=== PATIENT | female | born 1970 | race Caucasian/White ===

== ENCOUNTER 2016-04-25 15:21 | Emergency (ER) | payer MEDICAID ==
[2016-04-25 16:38] LABS: APPEARANCE CLEAR (CLEAR); BILIRUBIN NEGATIVE (NEGATIVE); COLOR YELLOW (YELLOW); GLUCOSE NEGATIVE (NEGATIVE); KETONE NEGATIVE (NEGATIVE); LEUKOCYTE ESTERASE 1+ (NEGATIVE); NITRITE POSITIVE (NEGATIVE); PROTEIN TRACE mg/dL (NEGATIVE); RED CELLS - URINE 0-5 /hpf (0-5); UROBILINOGEN NORMAL (NORMAL); WHITE CELLS - URINE >50 /hpf (0-5)
[2016-04-25 16:38] LABS: ALBUMIN 3.9 g/dL (3.4-5.0); ALKALINE PHOSPHATASE 110 U/L (46-116); ALT (SGPT) 75 U/L (10-68); CALC OSMOLALITY 278 mosm/kg (275-300); CALCIUM 9.3 mg/dL (8.5-10.1); CARBON DIOXIDE 29.1 mmol/L (21.0-32.0); CHLORIDE - SERUM 103 mmol/L (98-107); CREATININE - SERUM 0.7 mg/dL (0.6-1.3); GLUCOSE 106 mg/dL (74-106); PROTEIN - SERUM 7.3 g/dL (6.4-8.2); SODIUM 140 mmol/L (136-145); UREA NITROGEN 13 mg/dL (7-18); eGFR NON AFRICAN AMERICAN > 90 mL/min (90-120)
[2016-04-25 16:39] LABS: BACTERIA MANY /hpf (NONE SEEN); MUCUS <1+ /lpf (NONE SEEN)
[2016-04-25 16:41] LABS: BASOPHILS 0.2 % (0.0-2.0); EOSINOPHILS 1.6 % (0-7); HEMOGLOBIN 13.8 g/dL (12-16); IMMATURE GRANULOCYTES 0.1 % (0-5); LYMPHOCYTES 21.8 % (15-50); MCH 29.4 pg (26.0-34.0); MCHC 32.9 g/dL (31.0-37.0); MCV 89.6 fL (80.0-100.0); MEAN PLATELET VOLUME 9.6 fL (7.4-10.4); MONOCYTES 4.3 % (2-11); PLATELET COUNT 283 10x3/uL (130-400); RBC 4.69 10x6/uL (4.00-5.40); RDW 15.6 % (11.5-14.5); WBC 10.1 10x3/uL (4.8-10.8)
== END 2016-04-25 20:13 | disposition home or self-care (01) ==
LOC: D.ER 15:21
PROVIDERS: Emergency Medicine
DX: N39.0 Urinary tract infection, site not specified (principal); N76.0 Acute vaginitis; F90.9 Attention-deficit hyperactivity disorder, unspecified type; F31.9 Bipolar disorder, unspecified; I10 Essential (primary) hypertension; F39 Unspecified mood [affective] disorder; F17.200 Nicotine dependence, unspecified, uncomplicated

== ENCOUNTER 2016-06-03 20:10 | Emergency (ER) | payer MEDICAID ==
[2016-06-03 20:46] LABS: APPEARANCE CLEAR (CLEAR); BILIRUBIN NEGATIVE (NEGATIVE); COLOR STRAW (YELLOW); GLUCOSE NEGATIVE (NEGATIVE); KETONE NEGATIVE (NEGATIVE); LEUKOCYTE ESTERASE 1+ (NEGATIVE); NITRITE NEGATIVE (NEGATIVE); PROTEIN NEGATIVE (NEGATIVE); SPECIFIC GRAVITY 1.005 (1.005-1.020); UROBILINOGEN NORMAL (NORMAL)
[2016-06-03 20:55] LABS: BACTERIA FEW /hpf (NONE SEEN); EPITHELIAL CELLS 0-5 /hpf (0-5); RED CELLS - URINE 0-5 /hpf (0-5); WHITE CELLS - URINE 0-5 /hpf (0-5)
== END 2016-06-03 21:21 | disposition home or self-care (01) ==
LOC: D.ER 20:10
PROVIDERS: Emergency Medicine
DX: A59.01 Trichomonal vulvovaginitis (principal); F90.9 Attention-deficit hyperactivity disorder, unspecified type; F31.9 Bipolar disorder, unspecified; F39 Unspecified mood [affective] disorder; F17.200 Nicotine dependence, unspecified, uncomplicated

== ENCOUNTER 2016-06-19 16:35 | Emergency (ER) | payer MEDICAID ==
[2016-06-19 18:47] LABS: BASOPHILS 0.1 % (0.0-2.0); EOSINOPHILS 3.1 % (0-7); HEMATOCRIT 38.3 % (36.0-48.0); HEMOGLOBIN 12.9 g/dL (12-16); IMMATURE GRANULOCYTES 0.3 % (0-5); LYMPHOCYTES 33.7 % (15-50); MCH 30.2 pg (26.0-34.0); MCHC 33.7 g/dL (31.0-37.0); MCV 89.7 fL (80.0-100.0); MEAN PLATELET VOLUME 9.6 fL (7.4-10.4); MONOCYTES 7.2 % (2-11); NEUTROPHILS 55.6 % (40-80); PLATELET COUNT 283 10x3/uL (130-400); RBC 4.27 10x6/uL (4.00-5.40); RDW 15.4 % (11.5-14.5); WBC 7.4 10x3/uL (4.8-10.8)
[2016-06-19 19:03] LABS: APPEARANCE HAZY (CLEAR); BILIRUBIN NEGATIVE (NEGATIVE); COLOR YELLOW (YELLOW); GLUCOSE NEGATIVE (NEGATIVE); KETONE NEGATIVE (NEGATIVE); LEUKOCYTE ESTERASE 1+ (NEGATIVE); NITRITE POSITIVE (NEGATIVE); PROTEIN 1+ mg/dL (NEGATIVE); SPECIFIC GRAVITY 1.025 (1.005-1.020); UROBILINOGEN NORMAL (NORMAL)
[2016-06-19 19:04] LABS: BACTERIA MODERATE /hpf (NONE SEEN); EPITHELIAL CELLS 0-5 /hpf (0-5); RED CELLS - URINE >50 /hpf (0-5); WHITE CELLS - URINE 25-50 /hpf (0-5)
[2016-06-19 19:07] LABS: ALBUMIN 3.8 g/dL (3.4-5.0); ALKALINE PHOSPHATASE 86 U/L (46-116); ALT (SGPT) 62 U/L (10-68); BILIRUBIN - TOTAL 0.44 mg/dL (0.2-1.3); CALC OSMOLALITY 283 mosm/kg (275-300); CALCIUM 8.8 mg/dL (8.5-10.1); CARBON DIOXIDE 25.8 mmol/L (21.0-32.0); CHLORIDE - SERUM 106 mmol/L (98-107); CREATININE - SERUM 0.7 mg/dL (0.6-1.3); GLUCOSE 90 mg/dL (74-106); POTASSIUM - SERUM 3.6 mmol/L (3.5-5.1); PROTEIN - SERUM 7.2 g/dL (6.4-8.2); SODIUM 143 mmol/L (136-145); UREA NITROGEN 11 mg/dL (7-18); eGFR NON AFRICAN AMERICAN > 90 mL/min (90-120)
== END 2016-06-19 19:40 | disposition left against medical advice (07) ==
LOC: D.ER 16:35
PROVIDERS: Emergency Medicine
DX: N20.0 Calculus of kidney (principal)

== ENCOUNTER 2018-06-24 12:27 | Emergency (ER) | payer MEDICAID ==
[~2018-06-24] VITALS: Ht 162.6 cm; Wt 104.5 kg
[2018-06-24 12:33] VITALS: BP 157/93; Ht 162.6 cm; Wt 104.5 kg
[2018-06-24] MEDS ORDERED: FLUTICASONE PRO16 GM NASAL (14:48)
[2018-06-24] MEDS ORDERED: ZYRTEC10 MG PO (14:48)
== END 2018-06-24 15:00 | disposition home or self-care (01) ==
LOC: D.ER 12:27
DX: J00 Acute nasopharyngitis [common cold] (principal); R09.89 Other specified symptoms and signs involving the circulatory and respiratory systems